=== PATIENT | female | born 1975 | race Hispanic/Latino ===

== ENCOUNTER 2016-09-02 14:22 | Emergency (ER) | payer OTHER ==
[~2016-09-02] VITALS: Ht 152.4 cm; Wt 73.0 kg
[2016-09-02 14:26] VITALS: BP 118/77
--- NOTE | 2016-09-02 18:16 | ED SKIN/ALLERGY COMPLAINT ---
History of Present Illness General Chief Complaint: General Adult Stated Complaint: ABCESS Source: patient Exam Limitations: no limitations Vital Signs & Intake/Output Vital Signs & Intake/Output Vital Signs Date Time Temp Pulse Resp B/P B/P Pulse O2 O2 Flow FiO2 Mean Ox Delivery Rate 09/02 1426 99.1 75 15 118/77 98 Room Air Room Air Allergies Coded Allergies: No Known Allergies (09/02/16) Reconcile Medications Amoxicillin/Potassium Clav (Augmentin 875-125 Tablet) 875 MG-125 MG TABLET 1 TAB PO BID CELLULITIS Sulfamethoxazole/Trimethoprim (Bactrim Ds Tablet) 800 MG-160 MG TABLET 1 TAB PO BID CELLULITIS Triage Note: PT TO ED FOR ?BITE TO L BUTTCHEEK THAT HAPPENED ON FRIDAY. "I TRIED TO POP IT AND NOW I THINK IT'S INFECTED." DENIES FEVERS. Triage Nurses Notes Reviewed? yes Onset: Gradual Duration: getting worse Severity: moderate Severity Numbers: 5 Location: torso : No Patient currently breastfeeds: No HPI: Patient is a 41-year-old female who presents emergency room with concerns of a left buttock region skin infection where 5 days ago she noted a "pimple" where she popped this region by squeezing she noted purulent discharge that has resolved. Patient has noted worsening surrounding redness and swelling and point tenderness of the skin. Denies any fever chills denies any discharge since the initial as stated above. (LINDA AUGUST) Past History Travel History Traveled to [place] past 21 day No Medical History Any Pertinent Medical History? none Neurological: NONE EENT: NONE Cardiovascular: NONE Respiratory: NONE Gastrointestinal: NONE Hepatic: NONE Renal: NONE Musculoskeletal: NONE Psychiatric: NONE Endocrine: NONE Blood Disorders: NONE Cancer(s): NONE Surgical History Surgical History: non-contributory Psychosocial History What is your primary language [place] Tobacco Use: Never used ETOH Use: occasional use Illicit Drug Use: denies illicit drug use Family History Hx Contributory? No (LINDA AUGUST) Review of Systems Review of Systems Constitutional: Reports: no symptoms. EENTM: Reports: no symptoms. Respiratory: Reports: no symptoms. Cardiovascular: Reports: no symptoms. GI: Reports: no symptoms. Genitourinary: Reports: no symptoms. Musculoskeletal: Reports: no symptoms. Skin: Reports: see HPI, erythema. Neurological/Psychological: Reports: no symptoms. Hematologic/Endocrine: Reports: no symptoms. Immunologic/Allergic: Reports: no symptoms. All Other Systems: Reviewed and Negative (LINDA AUGUST) Physical Exam Physical Exam General Appearance: no apparent distress, alert, comfortable Head: atraumatic Eyes: Bilateral: normal appearance. Ears, Nose, Throat: hearing grossly normal Neck: normal inspection Back: normal inspection Extremities: normal inspection Neurologic/Psych: awake, alert Skin: intact Skin Problem Character: abcess, erythema Diagram Body: 1) NOTED 5 MM SKIN SCAB, NO DISCHARGE SURROUNDING FLUCTUANCE SURROUNDING 5 CM ERYTHEMA, WARMTH, TENDERNESS (LINDA AUGUST) Progress Differential Diagnosis: abscess/cellulitis, allergic reaction, anaphylaxis, angioedema, contact dermatitis, drug reaction, erythema multiforme, lyme disease , meningitis/sepsis, piyriasis rosea, RMSF, scarlet fever, shingles, syphilis/ gonococcemia, urticaria Plan of Care: Orders Procedure Date/time Status Regular Diet 09/03 B Active TRUNK AREA CULTURE 09/02 1856 Active Microbiology 09/02 1857 TRUNK: Culture & Sensitivity - RECD 09/02 1857 TRUNK: Gram Stain - RECD Patient on examination was noted to have abscess cellulitis to the left buttock Patient tolerated the incision and drainage well. No purulent discharge was noted (LINDA AUGUST) Departure Departure Disposition: HOME OR SELF CARE Condition: Stable Clinical Impression Primary Impression: Abscess of buttock, left Secondary Impressions: Cellulitis of buttock Referrals: PATIENT HAS NO PRIMARY CARE DR (PCP/Family) Additional Instructions: As discussed begin to apply warm compresses to the area. Begin to use the bandages provided to the emergency room if the bandage applied falls off and reapply as directed. Return to emergency room in 2 days for wound recheck. Begin the prescription of Augmentin and Bactrim as directed for the full course. If symptoms worsen or if he develop a new concerning symptom return to emergency room immediately. PRESCRIPTION is waiting at [facility] Departure Forms: Customer Survey General Discharge Information Prescriptions: Current Visit Scripts Amoxicillin/Potassium Clav (Augmentin 875-125 Tablet) 1 TAB PO BID #20 TAB Sulfamethoxazole/Trimethoprim (Bactrim Ds Tablet) 1 TAB PO BID #20 TAB (LINDA AUGUST) PA/KINDERGARTEN TEACHER ASSISTANT Co-Sign Statement Statement: ED Attending supervision documentation- [] I saw and evaluated the patient. I have also reviewed all the pertinent lab results and diagnostic results. I agree with the findings and the plan of care as documented in the PA's/KINDERGARTEN TEACHER ASSISTANT's documentation. [X] I have reviewed the ED Record and agree with the PA's/KINDERGARTEN TEACHER ASSISTANT's documentation. [] Additions or exceptions (if any) to the PAs/KINDERGARTEN TEACHER ASSISTANT's note and plan are summarized below: [] (IRIS PATEL,DOMO) Procedures Incision and Drainage Site: LEFT BUTTOCK Blade Size: 15 I & D Procedure: Yes: betadine prep. No: sterile drapes applied, sterile dressing applied. Progress: No purulent discharge was noted GAUZE AND TAGADERM WERE APPLIED (LINDA AUGUST)
[2016-09-02] MEDS ORDERED: AUGMENTIN 875-1 EACH PO (18:33)
[2016-09-02] MEDS ORDERED: BACTRIM DS TAB1 EACH PO (18:33)
== END 2016-09-02 18:59 ==
LOC: ERH
DX: L02.31 Cutaneous abscess of buttock (principal); L03.317 Cellulitis of buttock
CPT/HCPCS: 87184; 87070; 87147